=== PATIENT | female | born 1985 | race Caucasian/White ===

== ENCOUNTER 2016-04-08 19:47 | Emergency (ER) | payer OTHER ==
[~2016-04-08 19:47] MED LIST: PREN0.01
--- NOTE | 2016-04-10 10:19 | MB ---
cc: Ale BROOKS,BIRD Sweet M.D. EMERGENCY ROOM NOTE DATE OF CONSULTATION 04/08/16 Ms. Barnett is a 30-year-old white female para 1-0-0-1 whose last menstrual period in early ultrasound put her at 26 weeks and 2 days. Her date of confinement is 07/13/2016. She called me this evening and was having a sudden onset of severe right lower quadrant pain. She had been shopping with her son and had a severe right lower quadrant pain, stabbing. She had to sit-down. She had a hard time breathing. After resting for a little bit, it subsided. After several hours of having this pain, she called me to make sure that it was okay and I asked her to come into the emergency room. It shows she has a 3-hour history of right lower quadrant pain which started abruptly, stabbing at first, now burning. It did not radiate anywhere. She does have some problems with her bowels lately. She has been having some diarrhea and was up all night. No micturition problems at all. No heavy lifting and no trauma. She reports good movement and no rupture of membranes or bleeding. Her past OB history is a para 1-0-0-1. SOCIAL HISTORY She is . She does not smoke, drink or take drugs. PAST SURGICAL HISTORY She had an augmentation mammoplasty PAST MEDICAL HISTORY Negative. REVIEW OF SYSTEMS She denies any headaches, no shortness of breath except when she had the severe onset of pain, no chest pressure. She has this right lower quadrant burning sensation. She does have some diarrhea over the last day. No blood. No mucus. Her micturition pattern is normal. PHYSICAL EXAMINATION GENERAL: A well-developed, well-nourished female, in no acute distress resting fairly comfortably in the [facility]. VITAL SIGNS: Her temperature is 98.7, respirations are 18. Her pulse is 90. Her blood pressure is 123/66. NECK: Supple. Trachea is in midline. No thyromegaly or adenopathy. CHEST: Clear to auscultation. HEART: Regular rate and rhythm without murmur. ABDOMEN: Soft. It is slightly tender in the right lower quadrant. There is absolutely no rebound. Bowel sounds are normal in all four quadrants. The fundus and the uterus are totally nontender. PELVIC: The pelvic exam is deferred. EXTREMITIES: There is no clubbing, cyanosis or edema. ASSESSMENT/PLAN 1. Intrauterine at 26 weeks and 2 days. 2. Probable round ligament pain and I do not think this is due to her diarrhea, but I just told her to take it easy. I will discharge her home. She can take some Tylenol. I do not think she is that uncomfortable 3. Recent diarrhea. I told to rest and drink plenty of Gatorade or Poweraid to replenish her potassium. Her mucous membranes are nice and moist. I do not think she is dehydrated. Her skin turgor is normal. I will just send her home, rest, drink Gatorade, take Tylenol. She will call me. She will follow up with Dr. Markham as needed for her next OB visit. R. Stas Brooks MD RJRupal/ /8:54 PM /10:17 AM
== END 2016-04-08 21:09 | disposition home or self-care (01) ==
LOC: HOBED 19:47
DX: O26.892 Other specified pregnancy related conditions, second trimester (principal); R10.31 Right lower quadrant pain; R19.7 Diarrhea, unspecified; Z3A.26 26 weeks gestation of pregnancy
CPT/HCPCS: 99284

== ENCOUNTER 2016-07-05 23:56 | Emergency (ER) | payer OTHER ==
--- NOTE | 2016-07-06 00:47 | PD ---
HPI Chief Complaint Watery vaginal discharge at 10 PM Date Seen: July 06, 2016 Time Seen: 00:44 Travel History International Travel<30 Days: No Contact w/Intl Traveler<30Days: No Known Affected Area: No History of Present Illness HPI 31-year-old who is at 39 weeks gestation complains of a watery vaginal discharge that occurred 10 PM last evening. She states that she normally does have quite a bit of discharge but this was more than her usual when she called the office and told to come]. Patient denies abdominal pain uterine contractions or vaginal bleeding. She is group B strep negative Para: 1 : 2 History Past Medical History Medical History: Denies Significant Hx Obstetric History Obstetric History Spontaneous vaginal delivery Past Surgical History Surgical History: No Previous Surgery Family History Family History: Negative Social History Alcohol Use: No Tobacco Use: No Substance Abuse: No Allergies-Medications (Allergen,Severity, Reaction): Coded Allergies: No Known Allergies (Verified Allergy, Severe, 11/01/06) Home Meds Reported Medications Multivit/Min/Fol Ac/Iron/Pren ( Vit ( Plus)) Tab 11/01/06 Review of Systems Except as stated in HPI: all other systems reviewed are Neg Physical Exam Narrative GENERAL: Well-nourished, well-developed patient. SKIN: Warm and dry. HEAD: Normocephalic and atraumatic. CARDIOVASCULAR: Regular rate and rhythm without murmurs, gallops, or rubs. RESPIRATORY: Breath sounds equal bilaterally. No accessory muscle use. BREASTS: Bilateral exam showed no masses , no retractions, no nipple discharge. ABDOMEN/GI: Abdomen soft, non-tender, bowel sounds present, no rebound, no guarding Gravid to [-38] weeks size Fundal Height: [-] GENITOURINARY: External Genitalia: intact and normal in appearance BUS glands: [-] Cervix: [-1] Dilatation: [-1] Effacement: [80-] Station: [--2] Presentation: [-] Membranes: [intact ] no clinical signs of rupture membranes and amnisure is negative Uterine Contractions: [-Occasional irregular] FHT's: Category: [-1] Baseline: [-140] Reactive: [Moderate-] Variability: [-Moderate] Decels: [Absent-] EXTREMITIES: No cyanosis or edema. BACK: Nontender without obvious deformity. No CVA tenderness. NEUROLOGICAL: Awake and alert. Motor and sensory grossly within normal limits. Five out of 5 muscle strength in all muscle groups. Normal speech. Data Data Vital Signs Reviewed: Yes MDM Medical Record Reviewed: Yes Plan 31-year-old who is at 39 weeks gestation No clinical signs of rupture membranes amnisure is negative Patient is to follow with her OB provider Diagnosis Diagnosis: Primary Impression: 39 weeks gestation of Additional Impressions: Intact amniotic membranes during in third trimester Vaginal discharge during in third trimester Disposition: DISCHARGE HOME Magda Lemus MD July 06, 2016 00:47
== END 2016-07-06 00:52 | disposition home or self-care (01) ==
LOC: HOBED 23:56
DX: O26.893 Other specified pregnancy related conditions, third trimester (principal); N89.8 Other specified noninflammatory disorders of vagina; Z3A.39 39 weeks gestation of pregnancy
CPT/HCPCS: 59025; 84112

== ENCOUNTER 2016-07-07 02:37 | Inpatient (IN) | payer OTHER ==
[~2016-07-07] VITALS: Ht 162.6 cm; Wt 96.2 kg
[2016-07-07] VITALS (99 sets, daily range): BP systolic 87–139; BP diastolic 48–123; PULSE 73–123; RESP 18–19; TEMP 97.3–98.3; O2SAT 100
--- NOTE | 2016-07-07 02:52 | PD ---
HPI Chief Complaint contractions Date Seen: July 07, 2016 Time Seen: 02:52 Travel History International Travel<30 Days: No Contact w/Intl Traveler<30Days: No Known Affected Area: No History of Present Illness HPI Patient is a 31 yo at 39 1/7 weeks, presenting to the ED with cc contractions and SROM. She came to the ED last night with complaint of SROM, found to be intact and has had leakage of fluid since that time after being discharged home. She is not sure of an exact ROM time, reports having continued leakage of moderate amount fluid over the course of the day. She has experienced contractions q5mins since 6 pm last night. GBS negative. Infant moving, no vaginal bleeding. Para: 1 : 2 History Past Medical History Medical History: Denies Significant Hx Obstetric History Obstetric History Past Surgical History Surgical History: No Previous Surgery Family History Family History: Negative Social History Alcohol Use: No Tobacco Use: No Substance Abuse: No Allergies-Medications (Allergen,Severity, Reaction): Coded Allergies: No Known Allergies (Verified Allergy, Severe, 11/01/06) Home Meds Reported Medications Multivit/Min/Fol Ac/Iron/Pren ( Vit ( Plus)) Tab 11/01/06 Review of Systems General / Constitutional: No: Fever, Chills Eyes: No: Visual changes HENT: No: Headaches Cardiovascular: No: Chest Pain or Discomfort Respiratory: No: Cough, Short of Breath Physical Exam Narrative GENERAL: Well-nourished, well-developed patient. SKIN: Warm and dry. HEAD: Normocephalic and atraumatic. EYES: No scleral icterus. No injection or drainage. ENT: No nasal drainage noted. Mucous membranes pink. Airway patent. NECK: Supple, trachea midline. No JVD. CARDIOVASCULAR: Regular rate and rhythm without murmurs, gallops, or rubs. RESPIRATORY: Breath sounds equal bilaterally. No accessory muscle use. ABDOMEN/GI: Abdomen soft, non-tender, bowel sounds present, no rebound, no guarding Gravid to 39 weeks size GENITOURINARY: External Genitalia: intact and normal in appearance BUS glands: [-] Cervix: [-] Dilatation: [-] 5 Effacement: [-] 100 Station: [-] -1 Presentation: [-] vertex Membranes: ruptured Uterine Contractions: [-] FHT's: Category: [-] 1 Baseline: [-] 130 Reactive: [-] accels to 150 Variability: [-] moderate Decels: [-] none EXTREMITIES: No cyanosis or edema. BACK: Nontender without obvious deformity. No CVA tenderness. NEUROLOGICAL: Awake and alert. Motor and sensory grossly within normal limits. Five out of 5 muscle strength in all muscle groups. Normal speech. Data Data Vital Signs Reviewed: Yes MDM Medical Record Reviewed: Yes Plan 31 yo at 39 weeks gestation, in active labor. Active labor. GBS negative. -admit to L&D -unknown ROM timing, will initiate antibiotic treatment given possible that patient having ROM > 24 hours -Penicillin G per protocol -continuous heart monitoring -epidural -CBC, UA, Blood type -Dr. Hernandez aware patient being admitted wdw: Dr. Moreno Diagnosis Diagnosis: Primary Impression: 39 weeks gestation of Sierra De La Garza MD July 07, 2016 02:52
[2016-07-07] MEDS ORDERED: LACTATED RINGER'S 1000 ML INJ 1,000 ML IV PRN (03:06)
[2016-07-07] MEDS ORDERED: LACTATED RINGER'S 1000 ML INJ 1,000 ML IV SCH (03:06)
--- NOTE | 2016-07-07 03:09 | HHI.HP ---
History & Physical H&P Chief Complaint contractions Date Seen: July 07, 2016 Time Seen: 02:52 Travel History International Travel<30 Days: No Contact w/Intl Traveler<30Days: No Known Affected Area: No History of Present Illness HPI Patient is a 31 yo at 39 1/7 weeks, presenting to the ED with cc contractions and SROM. She came to the ED last night with complaint of SROM, found to be intact and has had leakage of fluid since that time after being discharged home. She is not sure of an exact ROM time, reports having continued leakage of moderate amount fluid over the course of the day. She has experienced contractions q5mins since 6 pm last night. GBS negative. Infant moving, no vaginal bleeding. Para: 1 : 2 History (Limited) History Past Medical History Medical History: Denies Significant Hx Obstetric History Obstetric History Past Surgical History Surgical History: No Previous Surgery Family History Family History: Negative Social History Alcohol Use: No Tobacco Use: No Substance Abuse: No Allergies-Medications Allergies-Medications (Allergen,Severity, Reaction): Coded Allergies: No Known Allergies (Verified Allergy, Severe, 11/01/06) Home Meds Reported Medications Multivit/Min/Fol Ac/Iron/Pren ( Vit ( Plus)) Tab 11/01/06 ROS Review of Systems General / Constitutional: No: Fever, Chills Eyes: No: Visual changes HENT: No: Headaches Cardiovascular: No: Chest Pain or Discomfort Respiratory: No: Cough, Short of Breath Physical Exam Physical Exam Narrative GENERAL: Well-nourished, well-developed patient. SKIN: Warm and dry. HEAD: Normocephalic and atraumatic. EYES: No scleral icterus. No injection or drainage. ENT: No nasal drainage noted. Mucous membranes pink. Airway patent. NECK: Supple, trachea midline. No JVD. CARDIOVASCULAR: Regular rate and rhythm without murmurs, gallops, or rubs. RESPIRATORY: Breath sounds equal bilaterally. No accessory muscle use. ABDOMEN/GI: Abdomen soft, non-tender, bowel sounds present, no rebound, no guarding Gravid to 39 weeks size GENITOURINARY: External Genitalia: intact and normal in appearance BUS glands: [-] Cervix: [-] Dilatation: [-] 5 Effacement: [-] 100 Station: [-] -1 Presentation: [-] vertex Membranes: ruptured Uterine Contractions: [-] FHT's: Category: [-] 1 Baseline: [-] 130 Reactive: [-] accels to 150 Variability: [-] moderate Decels: [-] none EXTREMITIES: No cyanosis or edema. BACK: Nontender without obvious deformity. No CVA tenderness. NEUROLOGICAL: Awake and alert. Motor and sensory grossly within normal limits. Five out of 5 muscle strength in all muscle groups. Normal speech. Data Data Data Vital Signs Reviewed: Yes MDM MDM Medical Record Reviewed: Yes Plan 31 yo at 39 weeks gestation, in active labor. Active labor. GBS negative. -admit to L&D -unknown ROM timing, will initiate antibiotic treatment given possible that patient having ROM > 24 hours -Penicillin G per protocol -continuous heart monitoring -epidural -CBC, UA, Blood type -Dr. Hernandez aware patient being admitted wdw: Dr. Moreno Diagnosis Diagnosis: Primary Impression: 39 weeks gestation of Sierra De La Garza MD July 07, 2016 02:52 Sierra De La Garza MD July 07, 2016 03:09
[2016-07-07] MEDS ORDERED: SODIUM CHLORID 0.9% 500 ML INJ 500 ML IV PRN (03:15)
[2016-07-07] MEDS ORDERED: LIDOCAINE HCL 1% 50 ML VIAL INFIL PRN (03:15)
[2016-07-07] MEDS ORDERED: PENICILLIN G POTASSIUM INJ 5,000,000 UNITS in SODIUM CHLORIDE 0.9% INJ 100 ML IV ONE (03:15)
[2016-07-07] MEDS ORDERED: CITRIC ACID-SODIUM CITRATE LIQ 30 ML UDC PO SCH (03:15)
[2016-07-07] MEDS ORDERED: MINERAL OIL 10 ML VIAL TOPICAL PRN (03:15)
[2016-07-07] MEDS ORDERED: OXYTOCIN 30 UNITS-500ML PREMIX 500 ML IV ONE (03:15)
[2016-07-07] MEDS ORDERED: LIDOCAINE HCL 1% 50 ML VIAL I-DERMAL PRN (03:15)
[2016-07-07] MEDS ORDERED: SODIUM CHLOR 0.9% 1000 ML INJ 1,000 ML IV PRN (03:26)
[2016-07-07 03:30] LABS: AUTOMATED NEUTROPHIL # 7.9 TH/MM3 (1.8-7.7); BASOPHIL % 0.3 % (0.0-2.0); EOSINOPHIL % 0.3 % (0.0-4.0); HEMATOCRIT 36.3 % (35.0-46.0); HEMO FLAGS DIFF FINAL; LYMPH % 19.7 % (9.0-44.0); LYMPHOCYTE # 2.1 TH/MM3 (1.0-4.8); MEAN CELL VOLUME 88.9 FL (80.0-100.0); MEAN CORPUSCULAR HEMOGLOBIN 29.7 PG (27.0-34.0); MEAN CORPUSCULAR HGB CONC 33.5 % (32.0-36.0); MONO % 5.8 % (0.0-8.0); NEUT % 73.9 % (16.0-70.0); PLATELET COUNT 228 TH/MM3 (150-450); RED BLOOD COUNT 4.09 MIL/MM3 (4.00-5.30); RED CELL DISTRIBUTION WIDTH 13.9 % (11.6-17.2); WHITE BLOOD COUNT 10.6 TH/MM3 (4.0-11.0)
[2016-07-07 03:33] LABS: BACTERIA, URINE RARE /hpf; BLOOD, URINE TRACE (NEG); COMMENT (UR) CULT NOT INDICATED; CULTURE IF INDICATED CULT NOT INDICATED; GLUCOSE,URINE NEG (NEG); KETONE, URINE 10 mg/dL (NEG); NITRITE,URINE NEG (NEG); SQUAMOUS EPITHELIAL CELL URINE 10 /hpf (0-5); URINE COLOR YELLOW (YELLW/STRAW)
[2016-07-07] MEDS ORDERED: fentaNYL 2MCG-BUPIV 0.125% INJ 100 ML ONE (03:35)
[2016-07-07] MEDS ORDERED: NO SYSTEM NARCOTICS PRN (04:00)
[2016-07-07] MEDS ORDERED: DO NOT ADMINISTER ANTICOAGULANTS PRN (04:00)
[2016-07-07] MEDS ORDERED: fentaNYL 2MCG-BUPIV 0.125% 100 ML EPIDURAL SCH (04:00)
[2016-07-07] MEDS ORDERED: ePHEDrine/NS 25 MG/5 ML SYR IV PRN (05:30)
[2016-07-07] MEDS ORDERED: PENICILLIN G POTASSIUM INJ 2,500,000 UNITS in SODIUM CHLORIDE 0.9% INJ 100 ML IV SCH (07:15)
--- NOTE | 2016-07-07 08:11 | PD.LABORPN ---
Subjective Subjective pt comfortable with epidural, on PCN for unsure SROM time Objective Vital Signs Vital Signs Date Time Temp Pulse Resp B/P Pulse Ox O2 Delivery O2 Flow Rate FiO2 07/07/16 07:45 86 07/07/16 07:45 91 114/69 07/07/16 07:40 89 100 07/07/16 07:35 104 100 07/07/16 07:31 87 105/62 07/07/16 07:30 104 100 07/07/16 07:20 90 07/07/16 07:15 89 07/07/16 07:15 96 120/76 07/07/16 07:05 94 07/07/16 07:01 88 108/63 07/07/16 07:00 94 07/07/16 06:55 91 07/07/16 06:50 89 07/07/16 06:46 88 115/67 07/07/16 06:45 102 07/07/16 06:40 90 07/07/16 06:35 84 07/07/16 06:31 84 100/53 07/07/16 06:30 83 18 07/07/16 06:25 84 07/07/16 06:20 87 07/07/16 06:16 81 109/54 07/07/16 06:15 83 07/07/16 06:10 86 07/07/16 06:05 84 07/07/16 06:01 87 106/61 07/07/16 06:00 18 07/07/16 06:00 87 07/07/16 05:55 90 07/07/16 05:50 86 07/07/16 05:46 81 99/48 07/07/16 05:45 83 07/07/16 05:40 89 07/07/16 05:35 83 07/07/16 05:31 86 115/55 07/07/16 05:30 92 18 07/07/16 05:25 93 07/07/16 05:20 93 07/07/16 05:16 89 111/57 07/07/16 05:15 89 07/07/16 05:10 93 07/07/16 05:05 96 07/07/16 05:01 97 111/62 07/07/16 05:00 98 18 07/07/16 05:00 98.0 07/07/16 04:55 96 07/07/16 04:50 97 07/07/16 04:46 108 122/72 07/07/16 04:45 100 07/07/16 04:43 18 07/07/16 04:42 116 139/76 07/07/16 04:40 123 07/07/16 04:36 93 108/66 07/07/16 04:35 87 07/07/16 04:31 90 125/72 07/07/16 04:30 95 07/07/16 04:26 87 128/68 07/07/16 04:25 95 07/07/16 04:21 94 125/72 07/07/16 04:20 92 07/07/16 04:17 18 07/07/16 04:16 91 125/61 07/07/16 04:15 99 07/07/16 04:15 18 07/07/16 04:10 92 07/07/16 04:10 88 125/85 07/07/16 04:05 100 07/07/16 04:01 106 119/87 07/07/16 04:00 18 07/07/16 03:30 18 Objective Pelvic Exam: Cervix: [-] Dilatation: [-] 6 Effacement: [-] 100 Station: [-] -1 per RN last check Presentation: [-] vtx Membranes: [intact or ruptured] SROM Uterine Contractions: [-] q2-3 FHT's: Category: [-] 1 Baseline: [-] Reactive: [-] R Variability: [-] good Decels: [-] Assessment/Plan Problem List: (1) 39 weeks gestation of Assessment and Plan f/u labor progress, may need Pit aug anticipate Pamela Hayes MD July 07, 2016 08:11
[2016-07-07] MEDS ORDERED: ALUMINUM/MAGNESIUM/SIMETH 30 ML CUP PO PRN (12:30)
[2016-07-07] MEDS ORDERED: WITCH HAZEL 50%/GLYCERIN 12.5% 40 PAD JAR TOPICAL PRN (12:30)
[2016-07-07] MEDS ORDERED: ONDANSETRON ODT 4 MG TAB PO PRN (12:30)
[2016-07-07] MEDS ORDERED: ACETAMINOPHEN 325 MG TAB PO PRN (12:30)
[2016-07-07] MEDS ORDERED: oxyCODONE/ACETAMINOPHEN 5 MG/325 MG TAB PO PRN ×2 (12:30)
[2016-07-07] MEDS ORDERED: SODIUM CHLORIDE 0.9% FLUSH 10 ML FLUSH IV FLUSH PRN (12:30)
[2016-07-07] MEDS ORDERED: ZOLPIDEM TARTRATE 5 MG TAB PO PRN (12:30)
[2016-07-07] MEDS ORDERED: BENZOCAINE 20% TOPICAL SPRAY 60 ML CAN TOPICAL PRN (12:30)
--- NOTE | 2016-07-07 13:51 | PD.OB.DELI ---
Delivery Date: July 07, 2016 Anesthesia: Epidural Episiotomy: None Vaginal Delivery: Normal Presentation: Occiput anterior, Compound (right arm) Nuchal Cord: x1 Delayed cord clamping (45 sec): Yes Infant: Male One Minute : 7 Five Minute : 9 Weight: 3635g Placenta: Spontaneous delivery, Intact, 3 vessel cord Laceration: Perineal laceration, 1 deg Repair: Chromic running (3.0 chromic ) Additional Information 31 year old who presented with SROM. Uncomplicated of male with nuchal cord x 1. Placenta delivered spontaneously. 1st degree perineal laceration repaired with 3.0 chromic. Vaginal polyps x 2 removed and hemostasis was achieved with 3.0 chromic running. EBL 250cc. Delivery supervised by Dr. Saeed (Socorro Pedraza MD R2) Attestation Agree with above. I was present for the delivery and repair. Assisted and instructed on repair. (Theresa Saeed MD) Socorro Pedraza MD R2 July 07, 2016 13:51 Theresa Saeed MD July 07, 2016 14:22
[2016-07-07] MEDS ORDERED: MEASLES, MUMPS, RUBELLA VACCINE 0.5 ML VIAL SQ ONE (16:00)
[2016-07-07] MEDS ORDERED: DIPHTH/TETANUS/ACEL PERTUSSIS (BOOSTER) 0.5 ML VIAL/PFS IM ONE (16:00)
[2016-07-07] MEDS: IBUPROFEN 600 MG TAB PO PRN ×2 (17:22→22:56)
[2016-07-07] MEDS ORDERED: SODIUM CHLORIDE 0.9% FLUSH 10 ML FLUSH IV FLUSH SCH (21:00)
[2016-07-07] MEDS: DOCUSATE SODIUM 50 MG/SENNA 8.6 MG TAB PO PRN (22:05)
[2016-07-08] MEDS: IBUPROFEN 600 MG TAB PO PRN ×3 (08:13→21:57)
--- NOTE | 2016-07-08 09:22 | HHI.OB ---
Subjective Post Day: 1 Remarks doing well, no complaints, h/o hemorrhoid, has ointment from Dr Manzano Objective Vitals/I&O Vital Signs Date Time Temp Pulse Resp B/P Pulse Ox O2 Delivery O2 Flow Rate FiO2 07/07/16 22:00 98.2 89 18 114/76 07/07/16 15:00 97.3 07/07/16 15:00 102 18 113/73 07/07/16 13:55 18 07/07/16 13:55 98.2 07/07/16 13:46 100 87/72 07/07/16 13:40 18 07/07/16 13:31 90 99/69 07/07/16 13:25 18 07/07/16 13:16 87 118/70 07/07/16 13:09 18 07/07/16 13:01 90 120/74 07/07/16 12:55 18 07/07/16 12:46 86 114/81 07/07/16 12:40 18 07/07/16 12:33 82 125/75 07/07/16 12:25 18 07/07/16 12:16 97 114/88 07/07/16 12:10 18 07/07/16 12:10 98.3 07/07/16 12:05 97 126/87 07/07/16 12:02 101 136/83 07/07/16 11:31 88 101/72 07/07/16 11:01 83 139/123 07/07/16 10:30 73 127/76 07/07/16 10:00 84 18 126/68 07/07/16 09:30 91 118/72 Objective Remarks GENERAL: Well-nourished, well-developed patient. CARDIOVASCULAR: Regular rate and rhythm without murmurs, gallops, or rubs. RESPIRATORY: Breath sounds equal bilaterally. No accessory muscle use. ABDOMEN/GI: Abdomen soft, non-tender. Fundus: Firm, non-tender at umbilicus. GENITOURINARY: Light to moderate bleeding. EXTREMITIES: No cyanosis or edema, non-tender, without signs of DVT. Medications and IVs Current Medications Medications (Trade) Dose Ordered Sig/Fady Route Start Time Stop Time Status Last Admin (fentaNYL 2MCG-BUPIV 0.125% INJ) 100 ml @ 0 mls/hr TITRATE EPIDURAL 07/07/16 04:00 07/07/16 08:45 (NS Flush) 2 ml BID IV FLUSH 07/07/16 21:00 (NS Flush) 2 ml UNSCH PRN IV FLUSH 07/07/16 12:30 (Tylenol) 650 mg Q4H PRN PO 07/07/16 12:30 (Motrin) 600 mg Q6H PRN PO 07/07/16 12:30 07/08/16 08:13 (Percocet 5-325 Mg) 1 tab Q4H PRN PO 07/07/16 12:30 (Percocet 5-325 Mg) 2 tab Q4H PRN PO 07/07/16 12:30 (Americaine 20% Top Spr) 1 spray Q4H PRN TOPICAL 07/07/16 12:30 07/07/16 22:05 (Tucks Pads) 1 applic QID PRN TOPICAL 07/07/16 12:30 07/07/16 22:05 (Mirtha-Colace) 2 tab Q12H PRN PO 07/07/16 12:30 07/07/16 22:05 (Ambien) 5 mg HS PRN PO 07/07/16 12:30 (Mag-Al Plus Susp Liq) 15 ml Q8H PRN PO 07/07/16 12:30 (Zofran Odt) 4 mg Q6H PRN PO 07/07/16 12:30 Assessment/Plan Problem List: (1) 39 weeks gestation of (2) Vaginal delivery Assessment and Plan PPD #1 , male routine PP care, circumcision discussed Discharge Planning routine Attending Attestation pt seen by Pamela Fletcher MD July 08, 2016 09:22
[2016-07-08] MEDS: DOCUSATE SODIUM 50 MG/SENNA 8.6 MG TAB PO PRN (11:13)
[2016-07-08] MEDS ORDERED: SIMETHICONE 80 MG CHEWABLE TAB PO PRN (11:15)
[2016-07-08 20:12] VITALS: BP 123/79; PULSE 97; RESP 18; TEMP 98.4
[2016-07-08 22:57] VITALS: RESP 18
[2016-07-09] MEDS: IBUPROFEN 600 MG TAB PO PRN ×2 (05:54→13:07)
[2016-07-09] MEDS: DOCUSATE SODIUM 50 MG/SENNA 8.6 MG TAB PO PRN (07:20)
--- NOTE | 2016-07-09 10:12 | HHI.OB ---
Subjective Post Day: 2 Remarks no complaints, pt and still disagreeing about circumcision, wants to wait and discuss it further with Bisi Objective Vitals/I&O Vital Signs Date Time Temp Pulse Resp B/P Pulse Ox O2 Delivery O2 Flow Rate FiO2 07/08/16 22:57 18 07/08/16 20:12 98.4 97 18 123/79 Objective Remarks GENERAL: Well-nourished, well-developed patient. CARDIOVASCULAR: Regular rate and rhythm without murmurs, gallops, or rubs. RESPIRATORY: Breath sounds equal bilaterally. No accessory muscle use. ABDOMEN/GI: Abdomen soft, non-tender. Fundus: Firm, non-tender at umbilicus. GENITOURINARY: Light to moderate bleeding. EXTREMITIES: No cyanosis or edema, non-tender, without signs of DVT. Medications and IVs Current Medications Medications (Trade) Dose Ordered Sig/Fady Route Start Time Stop Time Status Last Admin (fentaNYL 2MCG-BUPIV 0.125% INJ) 100 ml @ 0 mls/hr TITRATE EPIDURAL 07/07/16 04:00 07/07/16 08:45 (NS Flush) 2 ml BID IV FLUSH 07/07/16 21:00 (NS Flush) 2 ml UNSCH PRN IV FLUSH 07/07/16 12:30 (Tylenol) 650 mg Q4H PRN PO 07/07/16 12:30 (Motrin) 600 mg Q6H PRN PO 07/07/16 12:30 07/09/16 05:54 (Percocet 5-325 Mg) 1 tab Q4H PRN PO 07/07/16 12:30 (Percocet 5-325 Mg) 2 tab Q4H PRN PO 07/07/16 12:30 (Americaine 20% Top Spr) 1 spray Q4H PRN TOPICAL 07/07/16 12:30 07/07/16 22:05 (Tucks Pads) 1 applic QID PRN TOPICAL 07/07/16 12:30 07/07/16 22:05 (Mirtha-Colace) 2 tab Q12H PRN PO 07/07/16 12:30 07/09/16 07:20 (Ambien) 5 mg HS PRN PO 07/07/16 12:30 (Mag-Al Plus Susp Liq) 15 ml Q8H PRN PO 07/07/16 12:30 (Zofran Odt) 4 mg Q6H PRN PO 07/07/16 12:30 (Mylicon Chew) 80 mg Q6H PRN PO 07/08/16 11:15 07/08/16 11:13 Assessment/Plan Problem List: (1) 39 weeks gestation of (2) Vaginal delivery Assessment and Plan PPD #2 , male routine PP care, circumcision discussed Discharge Planning routine Attending Attestation pt seen by Pamela Fletcher MD July 09, 2016 10:12
[2016-07-09] MEDS ORDERED: IBUP-232 PO (10:13)
--- NOTE | 2016-07-09 10:13 | HHI.DCPOC ---
Discharge Care Plan Your Health Problems Are: Pelvic pain Report Symptoms to Your Doctor -Temperate above 100.5 degrees -Redness, of incision or excessive or foul smelling drainage -Unusual pain or calf pain -Increased vaginal bleeding -Painful or difficulty urinating -Feelings of extreme sadness or anxiety after 2 weeks Goals to Promote Your Health * To prevent worsening of your condition and complications * To maintain your health at the optimal level Directions to Meet Your Goals Take your medications as prescribed Follow your dietary instruction Follow activity as directed Ensure plenty of rest for recovery Drink fluids for hydration Keep your appointments as scheduled Take your immunizations and boosters as scheduled If your symptoms worsen call your PCP, if no PCP go to Urgent Care Center or Emergency Room Smoking is Dangerous to Your Health. Avoid second hand smoke Call the 24-hour crisis hotline for domestic abuse at Pamela Andrade MD July 09, 2016 10:13
== END 2016-07-09 13:51 | disposition home or self-care (01) | DRG 775 ==
LOC: HOBED 02:37 → H2EB 02:53 → H1EA 14:56
PROVIDERS: ADMIT Obstetrics & Gynecology; ATTEND Obstetrics & Gynecology
PROC: 10E0XZZ Delivery of Products of Conception, External Approach (ICD-10-PCS; principal; 2016-07-07)
PROC: 0HQ9XZZ Repair Perineum Skin, External Approach (ICD-10-PCS; 2016-07-07)
PROC: 00HU33Z Insertion of Infusion Device into Spinal Canal, Percutaneous Approach (ICD-10-PCS; 2016-07-07)
PROC: 3E0R3CZ (ICD-10-PCS; 2016-07-07)
DX: O69.81X0 Labor and delivery complicated by cord around neck, without compression, not applicable or unspecified (principal); N84.2 Polyp of vagina; O70.0 First degree perineal laceration during delivery; Z37.0 Single live birth; Z3A.39 39 weeks gestation of pregnancy
CPT/HCPCS: 59025; 81001; 84112; 85025; 86900; 86901; 90715; J2540; J7120